=== PATIENT | male | born 1980 | race Caucasian/White ===

== ENCOUNTER 2016-10-02 17:56 | Emergency (ER) | payer BC ==
[2016-10-02] MEDS ORDERED: Ketorolac 60 MG/2 ML SDV IM ONE (18:09)
--- NOTE | 2016-10-02 18:34 | EDM.PDOC ---
ED HPI LOWER BACK PAIN/INJURY - General Chief Complaint: Back Pain or Injury Stated Complaint: LOW BACK PAIN Time Seen by Provider: 10/02/16 18:05 Source of Information: Reports: Patient History Limitations: Reports: No limitations - History of Present Illness INITIAL COMMENTS - FREE TEXT/NARRATIVE: History of present illness: [36-year-old male presenting with complaints of acute low back pain. Patient indicates he was removing it grow from the back of the truck when he slipped and fell he felt severe back pain at that time but felt that it would improve. Patient indicates there was any short-term. Improvement but now the pain is significantly worse making him unable to sit still and or perform his ADLs without difficulty. Denies loss of continence of bowel or bladder] Review of systems: As per history of present illness and below otherwise all systems reviewed and negative. Past medical history: As per history of present illness and as reviewed below otherwise noncontributory. Surgical history: As per history of present illness and as reviewed below otherwise noncontributory. Social history: No reported history of drug or alcohol abuse. Family history: As per history of present illness and as reviewed below otherwise noncontributory. Physical exam: HEENT: Atraumatic, normocephalic, pupils reactive, negative for conjunctival pallor or scleral icterus, mucous membranes moist, throat clear, neck supple, nontender, trachea midline. Lungs: Clear to auscultation, breath sounds equal bilaterally, chest nontender. Heart: S1S2, regular, negative for clicks, rubs, or JVD. Abdomen: Soft, nondistended, nontender. Negative for masses or hepatosplenomegaly. Negative for costovertebral tenderness. Pelvis: Stable nontender. Genitourinary: Deferred. Rectal: Deferred. Extremities: Atraumatic, negative for cords or calf pain. Neurovascular unremarkable. Neuro: Awake, alert, oriented. Cranial nerves II through XII unremarkable. Cerebellum unremarkable. Motor and sensory unremarkable throughout. Exam nonfocal. X-ray negative save for some degenerative disc disease noted in the lumbar sacral region Diagnostics: [X-ray of lumbar sacral spine] Therapeutics: Toradol 60 IM] Impression: [Back pain] Plan: [Muscle relaxers smaller and pain medicine until patient can get back on to his PCP] Definitive disposition and diagnosis as appropriate pending reevaluation and review of above. - Related Data Allergies/ADRs: Allergies Allergy/AdvReac Type Severity Reaction Status Date / Time tramadol Allergy Rash Verified 10/02/16 18:05 Home Meds: Home Meds Orphenadrine [Norflex] 100 mg PO BID #20 tab.er 10/02/16 [Rx] atorvaSTATin [Lipitor] 40 mg PO ONETIME 10/02/16 [History] Past Medical History HEENT History: Reports: None Cardiovascular History: Reports: High cholesterol, Hypertension Respiratory History: Reports: None Gastrointestinal History: Reports: None Genitourinary History: Reports: None Musculoskeletal History: Reports: None Neurological History: Reports: None Psychiatric History: Reports: Antisocial behaviors, Bipolar, Depression Endocrine/Metabolic History: Reports: None Hematologic History: Reports: None Oncologic (Cancer) History: Reports: None Dermatologic History: Reports: None - Infectious Disease History Infectious Disease History: Reports: None Social & Family History - Family History Family Medical History: Noncontributory - Tobacco Use Smoking Status *Q: Never Smoker - Caffeine Use Caffeine Use: Reports: None - Recreational Drug Use Recreational Drug Use: No ED ROS GENERAL - Review of Systems Review Of Systems: See Below (The history of present illness) ED EXAM,LOWER BACK PAIN/INJURY - Physical Exam Exam: See Below (See history of present illness) Course - Vital Signs Last Recorded V/S: Last Vital Signs Temp 36.1 C 10/02/16 18:05 Pulse 99 10/02/16 19:11 Resp 17 10/02/16 19:11 BP 142/94 H 10/02/16 19:11 Pulse Ox 97 10/02/16 19:11 - Orders/Labs/Meds Orders: Active Orders 24 hr Category Date Time Status Lumbar Spine 2 or 3V [CR] Stat Exams 10/02/16 18:09 Ordered Sacrum Coccyx Min 2V [CR] Stat Exams 10/02/16 18:09 Ordered Meds: Medications Discontinued Medications Generic Name Dose Route Start Last Admin Trade Name Ryanq PRN Reason Stop Dose Admin Ketorolac Tromethamine 60 mg 10/02/16 18:09 10/02/16 18:16 Toradol IM 10/02/16 18:10 60 mg ONETIME ONE Administration Departure - Departure Time of Disposition: 19:23 Disposition: Home, Self-Care 01 Condition: good Clinical Impression: Back pain of lumbosacaral region with sciatica Instructions: Muscle Strain, [id number], Back Injury Prevention, [id number] , Back Pain, Adult, [id number], Pain Medicine Instructions, [id number] Forms: ED Department Discharge Additional Instructions: The following information is given to patients seen in the emergency department who are being discharged to home. This information is to outline your options for follow-up care. We provide all patients seen in our emergency department with a follow-up referral. The need for follow-up, as well as the timing and circumstances, are variable depending upon the specifics of your emergency department visit. If you don't have a primary care physician on staff, we will provide you with a referral. We always advise you to contact your personal physician following an emergency department visit to inform them of the circumstance of the visit and for follow-up with them and/or the need for any referrals to a consulting specialist. The emergency department will also refer you to a specialist when appropriate. This referral assures that you have the opportunity for follow-up care with a specialist. All of these measure are taken in an effort to provide you with optimal care, which includes your follow-up. Under all circumstances we always encourage you to contact your private physician who remains a resource for coordinating your care. When calling for follow-up care, please make the office aware that this follow-up is from your recent emergency room visit. If for any reason you are refused follow-up, please contact the [facility] Emergency Department at and asked to speak to the emergency department charge nurse. Take medication as directed Followup with primary care provider one to 2 days return to ED as needed as discussed - My Orders Last 24 Hours: My Active Orders 10/02/16 18:09 Lumbar Spine 2 or 3V [CR] Stat Sacrum Coccyx Min 2V [CR] Stat - Assessment/Plan Last 24 Hours: My Active Orders 10/02/16 18:09 Lumbar Spine 2 or 3V [CR] Stat Sacrum Coccyx Min 2V [CR] Stat
--- NOTE | 2016-10-02 19:53 | CR ---
EXAM DATE: 10/02/16 PATIENT'S AGE: 36 Patient: ANAYELI LINARES Facility: [place], [place] Site . Site : 1980 Study: XRay Spine Lumbar [id number]/27/2017 6:47:43 PM Ordering Physician: Doctor Grace Final Report: INDICATION: Fall with left leg pain and numbness TECHNIQUE: Lumbar spine 3 view. COMPARISON: None FINDINGS: Bones: Alignment is normal. No fractures or significant bone lesions. Joints: Mild to moderate multilevel degenerative disc and facet disease, most pronounced at the L5-S1 level. Soft tissues: Unremarkable. IMPRESSION: Multilevel degenerative changes. No acute fracture or subluxation. Dictated by Trudy Schroeder MD @ Oct 02 2016 7:07PM (Electronic Signature) Report Signed by Proxy and Original Signed Document filed in the Medical Record. MTDFred
--- NOTE | 2016-10-02 19:54 | CR ---
EXAM DATE: 10/02/16 PATIENT'S AGE: 36 Patient: ANAYELI LINARES Facility: [place], [place] Site . Site : 1980 Study: XRay Spine sac/paul [id number]/27/2017 6:48:04 PM Ordering Physician: Doctor Grace Final Report: Indication: Fall Technique: Three views sacrum and coccyx Comparison: None Findings: Bones: Alignment is normal. No fractures or bone lesions. Joint spaces: Unremarkable. Soft tissues: Unremarkable. Impression: Negative. Dictated by Trudy Schroeder MD @ Oct 02 2016 7:10PM (Electronic Signature) Report Signed by Proxy and Original Signed Document filed in the Medical Record. [facility]
[2016-10-02 20:03] VITALS: BP 135/91
== END 2016-10-02 19:42 | disposition home or self-care (01) ==
LOC: MW.ED 17:56
DX: M54.42 Lumbago with sciatica, left side (principal); E78.00 Pure hypercholesterolemia, unspecified; I10 Essential (primary) hypertension; F32.9 Major depressive disorder, single episode, unspecified; Z88.5 Allergy status to narcotic agent; Z79.899 Other long term (current) drug therapy
CPT/HCPCS: 72100; 72220; 96372; 99283; J1885

== ENCOUNTER 2016-10-07 03:36 | Emergency (ER) | payer BC ==
[2016-10-07] MEDS ORDERED: Ondansetron 4 MG/2 ML SDV IVPUSH PRN (04:02)
--- NOTE | 2016-10-07 04:07 | EDM.PDOC ---
ED HPI RENAL/ - General Chief Complaint: Abdominal Pain Stated Complaint: ABDOMINAL PAIN Time Seen by Provider: 10/07/16 04:00 Source of Information: Reports: Patient, RN - History of Present Illness INITIAL COMMENTS - FREE TEXT/NARRATIVE: He presents with pain that reminds him of his prior kidney stones. He has had a kidney stone at least 7 times in the past. No fever. Pain is along the left side of his abdomen. He thinks it is severe. - Related Data Allergies/ADRs: Allergies Allergy/AdvReac Type Severity Reaction Status Date / Time tramadol Allergy Rash Verified 10/07/16 03:45 Home Meds: Home Meds atorvaSTATin [Lipitor] 40 mg PO DAILY 10/02/16 [History] Lisinopril [Zestril] 40 mg PO DAILY 10/07/16 [History] Sertraline [Zoloft] 100 mg PO BEDTIME 10/07/16 [History] Past Medical History HEENT History: Reports: None Cardiovascular History: Reports: High cholesterol, Hypertension. Denies: CAD, CA Respiratory History: Reports: None. Denies: COPD Gastrointestinal History: Reports: None Genitourinary History: Reports: None, Renal calculus Other Genitourinary History: passed out kidney stones Musculoskeletal History: Reports: None Neurological History: Reports: None Psychiatric History: Reports: Antisocial behaviors, Bipolar, Depression Endocrine/Metabolic History: Reports: None Hematologic History: Reports: None Oncologic (Cancer) History: Reports: None Dermatologic History: Reports: None - Infectious Disease History Infectious Disease History: Reports: Chicken pox - Past Surgical History HEENT Surgical History: Reports: Adenoidectomy, Tonsillectomy Social & Family History - Family History Family Medical History: Noncontributory - Tobacco Use Smoking Status *Q: Never Smoker Second Hand Smoke Exposure: No - Caffeine Use Caffeine Use: Reports: Soda Caffeine Use Comment: 2drinks/day - Recreational Drug Use Recreational Drug Use: No ED ROS GENERAL - Review of Systems Review Of Systems: See Below Constitutional: Denies: fever, chills HEENT: Denies: Dental pain Respiratory: Denies: Shortness of Breath, Cough, Sputum Cardiovascular: Denies: Chest pain GI/Abdominal: Reports: Abdominal pain, Diarrhea ED EXAM, RENAL/ - Physical Exam Exam: See Below General Appearance: alert Throat/Mouth: Normal inspection Neck: normal inspection Respiratory/Chest: no respiratory distress, lungs clear, normal breath sounds Cardiovascular: regular rate, rhythm, no murmur GI/Abdominal: soft. No: non tender (Mild diffuse left-sided abdominal tenderness) Rectal (Males) Exam: Deferred (. No rebound tenderness.) Course - Vital Signs Last Recorded V/S: Last Vital Signs Temp 96.7 F 10/07/16 03:39 Pulse 86 10/07/16 05:02 Resp 17 10/07/16 05:02 BP 142/88 H 10/07/16 05:02 Pulse Ox 86 L 10/07/16 05:02 - Orders/Labs/Meds Orders: Active Orders 24 hr Category Date Time Status Abdomen Pelvis wo Cont [CT] Stat Exams 10/07/16 05:36 Taken Ondansetron [Zofran] Med 10/07/16 04:02 Active 4 mg IVPUSH Q4H PRN Sodium Chloride 0.9% [Normal Saline] 1,000 ml Med 10/07/16 04:15 Active IV ASDIRECTED fentaNYL [Sublimaze] Med 10/07/16 03:59 Active 50 mcg IVPUSH Q1H PRN Medication Orders Fentanyl (Sublimaze) 50 mcg IVPUSH Q1H PRN PRN Reason: Pain Last Admin: 10/07/16 05:08 Dose: 50 mcg Admin: 10/07/16 04:08 Dose: 50 mcg Sodium Chloride (Normal Saline) 1,000 mls @ 500 mls/hr IV ASDIRECTED HERMAN Last Admin: 10/07/16 04:08 Dose: 500 mls/hr Ondansetron HCl (Zofran) 4 mg IVPUSH Q4H PRN PRN Reason: Nausea Last Admin: 10/07/16 04:08 Dose: 4 mg Labs: Laboratory Tests 10/07/16 10/07/16 10/07/16 Range/Units 03:45 03:45 03:50 WBC 7.28 (4.0-11.0) K/uL RBC 4.69 (4.50-5.90) M/uL Hgb 13.8 (13.0-17.0) g/dL Hct 40.9 (38.0-50.0) % MCV 87.2 (80.0-98.0) fL MCH 29.4 (27.0-32.0) pg MCHC 33.7 (31.0-37.0) g/dL RDW Std Deviation 41.7 (28.0-62.0) fl RDW Coeff of Rachel 13 (11.0-15.0) % Plt Count 295 (150-400) K/uL MPV 9.40 (7.40-12.00) fL Neut % (Auto) 41.0 L (48.0-80.0) % Lymph % (Auto) 45.5 H (16.0-40.0) % Archer % (Auto) 7.7 (0.0-15.0) % Eos % (Auto) 5.4 (0.0-7.0) % Baso % (Auto) 0.4 (0.0-1.5) % Neut # (Auto) 3.0 (1.4-5.7) K/uL Lymph # (Auto) 3.3 H (0.6-2.4) K/uL Archer # (Auto) 0.6 (0.0-0.8) K/uL Eos # (Auto) 0.4 (0.0-0.7) K/uL Baso # (Auto) 0.0 (0.0-0.1) K/uL Nucleated RBC % 0.0 /100WBC Nucleated RBCs # 0 K/uL Sodium 141 (136-146) mmol/L Potassium 3.2 L (3.5-5.1) mmol/L Chloride 107 (98-110) mmol/L Carbon Dioxide 25 (21-31) mmol/L BUN 19 (6.0-23.0) mg/dL Creatinine 0.9 (0.6-1.5) mg/dL Est Cr Clr Drug Dosing 116.03 mL/min Estimated GFR (MDRD) > 60.0 ml/min Glucose 100 (60-110) mg/dL Calcium 8.8 (8.8-10.8) mg/dL Magnesium 1.8 (1.5-2.3) mEq/L Total Bilirubin 0.4 (0.1-1.5) mg/dL AST 22 (5-40) IU/L ALT 28 (8-54) IU/L Alkaline Phosphatase 58 (40-150) Total Protein 7.0 (6.0-8.0) g/dL Albumin 4.2 (3.5-5.0) g/dL Globulin 2.8 (2.0-3.5) g/dL Albumin/Globulin Ratio 1.5 (1.3-2.8) Urine Color YELLOW Urine Appearance CLEAR Urine pH 6.0 (5.0-8.0) Ur Specific Hydes 1.025 (1.001-1.035) Urine Protein NEGATIVE (NEGATIVE) mg/dL Urine Glucose (UA) NEGATIVE (NEGATIVE) mg/dL Urine Ketones NEGATIVE (NEGATIVE) mg/dL Urine Occult Blood LARGE H (NEGATIVE) Urine Nitrite NEGATIVE (NEGATIVE) Urine Bilirubin NEGATIVE (NEGATIVE) Urine Urobilinogen 1.0 (<2.0) EU/dL Ur Leukocyte Esterase NEGATIVE (NEGATIVE) Urine RBC 37-50 (0-2/HPF) Urine WBC 0-2 (0-5/HPF) Ur Epithelial Cells RARE (NONE-FEW) Urine Bacteria RARE (NEGATIVE) Urine Mucus LIGHT (NONE-MOD) Meds: Medications Generic Name Dose Route Start Last Admin Trade Name Freq PRN Reason Stop Dose Admin Fentanyl 50 mcg 10/07/16 03:59 10/07/16 05:08 Sublimaze IVPUSH 50 mcg Q1H PRN Administration Pain Sodium Chloride 1,000 mls @ 500 mls/hr 10/07/16 04:15 10/07/16 04:08 Normal Saline IV 500 mls/hr ASDIRECTED HERMAN Administration Ondansetron HCl 4 mg 10/07/16 04:02 10/07/16 04:08 Zofran IVPUSH 4 mg Q4H PRN Administration Nausea - Re-Assessments/Exams Free Text/Narrative Re-Assessment/Exam: 10/07/16 06:57 Feeling improved. I discussed the CT findings with him. He feels that it is acceptable for him to go home. Departure - Departure Time of Disposition: 06:57 Disposition: Home, Self-Care 01 Clinical Impression: Ureterolithiasis Referrals: PCP,None [Primary Care Provider] - Forms: ED Department Discharge Additional Instructions: He is feeling significantly improved. He is to strain his urine at home. Plenty of fluids. Percocet 10/325 one every 4 hours when necessary pain dispense 20. Zofran 4 mg one by mouth every 6 hours when necessary dispensed 6 with one refill. He is going back to [place] Sunday he is to follow up with his physician there appeared . He will be taking copies of his CT and lab results with him to his followup appointment the - My Orders Last 24 Hours: My Active Orders 10/07/16 03:59 fentaNYL [Sublimaze] 50 mcg IVPUSH Q1H PRN 10/07/16 04:02 Ondansetron [Zofran] 4 mg IVPUSH Q4H PRN 10/07/16 04:15 Sodium Chloride 0.9% [Normal Saline] 1,000 ml IV ASDIRECTED 10/07/16 05:36 Abdomen Pelvis wo Cont [CT] Stat - Assessment/Plan Last 24 Hours: My Active Orders 10/07/16 03:59 fentaNYL [Sublimaze] 50 mcg IVPUSH Q1H PRN 10/07/16 04:02 Ondansetron [Zofran] 4 mg IVPUSH Q4H PRN 10/07/16 04:15 Sodium Chloride 0.9% [Normal Saline] 1,000 ml IV ASDIRECTED 10/07/16 05:36 Abdomen Pelvis wo Cont [CT] Stat
[2016-10-07] MEDS: fentaNYL 100 MCG/2 ML SDV IVPUSH PRN ×3 (04:08→07:00)
[2016-10-07] MEDS ORDERED: Sodium Chloride 0.9% 1,000 ML IV SCH (04:15)
[2016-10-07 04:21] LABS: CHLORIDE,CL 107 mmol/L (98-110); SODIUM,NA 141 mmol/L (136-146)
[2016-10-07] MEDS ORDERED: Tamsulosin 0.4 MG Cap.ER PO ONE (07:02)
[2016-10-07 07:28] VITALS: BP 127/81
--- NOTE | 2016-10-09 17:24 | CT ---
EXAM DATE: 10/07/16 PATIENT'S AGE: 36 Patient: ANAYELI LINARES Facility: [place], [place] Site . Site : 1980 Study: CT Abdomen/Pelvis wo cont [id number]/1/2017 5:55:10 AM Ordering Physician: Donovan Valencia Final Report: INDICATION: Flank pain left TECHNIQUE: CT abdomen and pelvis without i.v. contrast. Coronal and sagittal reformats were obtained. COMPARISON: None FINDINGS: Lower chest: A punctate calcified granuloma is seen in the right lateral lung base. Liver: geographic low density is present in the right lobe of the liver, likely due to inhomogeneous fatty infiltration. Spleen: Unremarkable. Pancreas: Unremarkable. Gallbladder and bile ducts: Unremarkable. Kidneys: There is a 1 mm stone present in the left bladder trigone and a 1 mm stone is seen in the distal left ureter on image 153. Mild left hydroureter and renal pelviectasis is seen. The right kidney and ureter are unremarkable in appearance. Adrenal glands: Unremarkable. GI tract: Unremarkable. The appendix is normal in appearance and size. Vascular: Unremarkable. Lymph nodes: Unremarkable. Miscellaneous: Unremarkable. No pneumoperitoneum is seen. No significant ascites is noted. Pelvic Organs: Unremarkable. Bones: Unremarkable for age. IMPRESSION: 1. There is a 1 mm stone present in the left bladder trigone and a 1 mm stone is seen in the distal left ureter on image 153. Mild left hydroureter and renal pelviectasis is seen. Dictated by Faustino Noble MD @ 10/07/2016 6:03:11 AM Dictated by: Faustino Noble MD @ 10/07/2016 06:03:19 (Electronic Signature) Report Signed by Proxy and Original Signed Document filed in the Medical Record. [facility]
== END 2016-10-07 07:28 | disposition home or self-care (01) ==
LOC: MW.ED 03:36
DX: N20.1 Calculus of ureter (principal); E78.00 Pure hypercholesterolemia, unspecified; I10 Essential (primary) hypertension; F32.9 Major depressive disorder, single episode, unspecified; Z88.5 Allergy status to narcotic agent; Z79.899 Other long term (current) drug therapy; Z98.890 Other specified postprocedural states
CPT/HCPCS: 74176; 80053; 81001; 83735; 85025; 96361; 96374; 96375; 96376; 99284; A9270; J2405; J3010; J7040